=== PATIENT | male | born 2005 | race Caucasian/White ===

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

== ENCOUNTER 2023-08-21 13:11 | Observation (INO) | payer OTHER ==
--- OUTSIDE RECORDS SUMMARY | 2023-08-21 13:14 | XMS REPORT | Continuity of Care Document ---
Author Name Unknown Address [address] [facility] [address] th[address] Address [address] [facility] [address] [place] [address] Care Team Providers Care Construction Flagger Name Role Phone Apoorva Attending Clinician Unavailable Apoorva Admitting Clinician Unavailable Payers Payer Name Policy Type Policy Number Effective Date Expirati on Date Source [facility] [id number] Encounters Start Date/Time End Date/Time Encounter Type Admission Type Attending Clinicians Care Facility Care Department Encounter ID Source 2023-05-07 00:00:00 2023-05-07 00:00:00 Outpatient Kitty_Fabienne martinez [facility] [id number] [facility] 2023-04-26 14:05:38 2023-04-26 14:05:38 Outpatient JASON GOMEZ [id number] Allan Guadarrama
[2023-08-21] MEDS ORDERED: ONDANSETRON 4 MG/2 ML VIAL ONE (13:42)
[2023-08-21] MEDS ORDERED: PANTOPRAZOLE 40 MG INJ ONE ×2 (13:42→17:46)
[2023-08-21] MEDS ORDERED: FAMOTIDINE 20 MG/2 ML VIAL IV ONE (13:42)
[2023-08-21] MEDS ORDERED: NA CHLORIDE 0.9% 1,000 ML ONE ×2 (13:42→15:31)
[2023-08-21 13:47] LABS: Absolute Eosinophils 0.1 K/uL (0-0.5); Absolute Lymphocytes (CBC) 2.5 K/uL (0.7-4.9); Absolute Monocytes 0.5 K/uL (0.1-1.3); Absolute Neutrophil 6.2 K/uL (1.8-8.0); Basophils % 0.4 % (0-1.3); Eosinophils % 1.2 % (0-4.4); Hematocrit 42.7 % (39.6-49.0); Hemoglobin 14.3 g/dL (13.6-17.9); Lymphocytes % 26.4 % (15.3-44.8); MCH 29.7 pg (27.0-35.0); MCHC 33.4 g/dL (32.0-36.0); MCV 88.9 fL (80-100); MPV 8.3 fL (7.6-11.3); Monocytes % 5.8 % (3.3-12.3); Neutrophils % 66.2 % (41.7-73.7); Platelets 314 thou/uL (152-406); Red Cell Distribution Width 12.7 % (12.1-15.2)
[2023-08-21 14:07] LABS: Albumin 3.9 g/dL (3.4-5.0); Anion Gap 7.2 mEq/L (5.0-15.0); Bilirubin Total 0.5 mg/dL (0.2-1.0); Globulin 3.9 g/dL (2.3-3.5); Potassium 4.2 mEq/L (3.5-5.1); Protein, Total 7.8 g/dL (6.4-8.2)
--- NOTE | 2023-08-21 14:28 | RAD REPORT ---
EXAM DESCRIPTION: Satya Single View08/21/2023 1:44 pm CLINICAL HISTORY: COUGH COMPARISON: No comparisons TECHNIQUE: Portable AP view of the chest. FINDINGS: The lungs are clear. No pneumothorax or effusion. The cardiomediastinal contours are unre markable. IMPRESSION: No acute cardiopulmonary process.
[2023-08-21 14:45] LABS: Specific Gravity > 1.030 (1.005-1.030); Sqamous Epithelial <5 /HPF (None Seen); Urine Bacteria None Seen /HPF (<20); Urine Bilirubin NEGATIVE (Negative); Urine Blood Negative (Negative); Urine Clarity Clear (Clear); Urine Color Light-Yellow (Yellow); Urine Culture Reflex Order NOT NEEDED; Urine Glucose NEGATIVE (Negative); Urine Ketones NEGATIVE (Negative); Urine Microscopic Reflex YN ORDER UMIC; Urine Mucus Slight /HPF (None Seen); Urine Nitrite NEGATIVE (Negative); Urine Protein NEGATIVE (Negative); Urine RBC <5 /HPF (None Seen); Urine Urobilinogen Normal (Normal); Urine WBC <5 /HPF (<5); Urine pH 5.5 (5.0-7.0)
--- NOTE | 2023-08-21 14:52 | RAD REPORT ---
EXAM DESCRIPTION: CT - Abdomen Pelvis W Contrast - 08/21/2023 1:50 pm CLINICAL HISTORY: ABD PAIN COMPARISON: No comparisons TECHNIQUE: Thin cut axial CT imaging of the abdomen and pelvis was performed following intravenous a dministration of iodinated contrast. Multiplanar reformats were generated and reviewed. All CT scans are performed using dose optimization technique as appropriate and may include automated exposure control or mA/KV adjustment according to patient size. FINDINGS: No suspicious findings in the lung bases. The liver, spleen, adrenal glands, and pancreas show no suspicious findings. Gallbladder and biliary tree are also without suspicious finding. Symmetric renal function is seen with no hydronephrosis or suspicious renal mass. No dilated bowel loops or bowel wall thickening. Appendix is unremarkable. No free air, free fluid or inflammatory stranding. No hernia, mass or bulky lymphadenopathy. The urinary bladder is without sig nificant finding. No suspicious bony findings. IMPRESSION: No acute intra-abdominal process.
[2023-08-21] MEDS ORDERED: MAGNES/ALUMIN/SIMET 30ML UCUP ONE (15:30)
[2023-08-21] MEDS ORDERED: LIDOCAINE VISCOUS 2% 10ML ORAL SOLN ONE (15:30)
[2023-08-21 16:35] LABS: Hematocrit 38.4 % (39.6-49.0); Hemoglobin 13.2 g/dL (13.6-17.9)
--- NOTE | 2023-08-21 17:12 | ER ---
Nurse's Notes [facility] Name: Vinay Castro Age: 18 yrs Sex: Male : 2005 Arrival Date: 08/21/2023 Time: 13:11 Bed 6 Private MD: Diagnosis: Hematemesis Presentation: 08/20 13:23 Chief complaint: Patient states: Vomiting blood since March. Mostly just bright red ll1 blood now. Feels weak, fatigued, and dizzy lately. Coronavirus screen: Client denies travel out of the [place] in the last 14 days. At this time, the client does not indicate any symptoms associated with coronavirus-19. Ebola Screen: Patient denies travel to an Ebola-affected area in the 21 days before illness onset. Initial Sepsis Screen: Does the patient meet any 2 criteria? No. Patient's initial sepsis screen is negative. Does the patient have a suspected source of infection? No. Patient's initial sepsis screen is negative. Risk Assessment: Do you want to hurt yourself or someone else? Patient reports no desire to harm self or others. Onset of symptoms was March 12, 2023. 13:23 Method Of Arrival: Ambulatory ll1 13:23 Acuity: LUCA 2 ll1 Triage Assessment: 13:25 General: Appears uncomfortable, Behavior is calm, cooperative, appropriate for age. ll1 Pain: Complains of pain in abdomen Pain currently is 3 out of 10 on a pain scale. Quality of pain is described as aching, crampy. GI: Reports lower abdominal pain, upper abdominal pain, cramping, nausea, vomiting, vomiting blood. Historical: - Allergies: 13:23 No Known Allergies; ll1 - Home Meds: 13:23 None [Active]; ll1 - PMHx: 13:23 None; ll1 - PSHx: 13:23 None; ll1 - Immunization history:: Adult Immunizations up to date. - Infectious Disease History:: Denies. - Social history:: Smoking status: Reported history of juuling and/or vaping. Patient denies any tobacco usage or history of. Screenin:41 [facility] ED Fall Risk Assessment (Adult) History of falling in the last 3 months, ll1 including since admission No falls in past 3 months (0 pts) Confusion or Disorientation No (0 pts) Intoxicated or Sedated No (0 pts) Impaired Gait No (0 pts) Mobility Assist Device Used No (0 pt) Altered Elimination No (0 pt) Score/Fall Risk Level 0 - 2 = Low Risk. Abuse screen: Denies threats or abuse. Denies injuries from another. Nutritional screening: No deficits noted. Tuberculosis screening: No symptoms or risk factors identified. Assessment: 14:00 Reassessment: Patient appears in no apparent distress at this time. Patient and/or db family updated on plan of care and expected duration. Pain level reassessed. Patient is alert, oriented x 3, equal unlabored respirations, skin warm/dry/pink. General: Appears in no apparent distress. comfortable, Behavior is calm, cooperative. Neuro: Level of Consciousness is awake, alert, obeys commands, Oriented to person, place, time, situation. Respiratory: Airway is patent Respiratory effort is even, unlabored, Respiratory pattern is regular, symmetrical. GI: Abdomen is flat, Reports lower abdominal pain, nausea, vomiting. 15:00 Reassessment: Patient appears in no apparent distress at this time. Patient and/or db family updated on plan of care and expected duration. Pain level reassessed. Patient is alert, oriented x 3, equal unlabored respirations, skin warm/dry/pink. 16:00 Reassessment: Patient appears in no apparent distress at this time. Patient and/or db family updated on plan of care and expected duration. Pain level reassessed. Patient is alert, oriented x 3, equal unlabored respirations, skin warm/dry/pink. 17:00 Reassessment: Patient appears in no apparent distress at this time. Patient and/or db family updated on plan of care and expected duration. Pain level reassessed. Patient is alert, oriented x 3, equal unlabored respirations, skin warm/dry/pink. General: Appears in no apparent distress. comfortable, Behavior is calm, cooperative. 18:30 Reassessment: Patient appears in no apparent distress at this time. Patient and/or db family updated on plan of care and expected duration. Pain level reassessed. Patient is alert, oriented x 3, equal unlabored respirations, skin warm/dry/pink. 19:00 General: Appears in no apparent distress. comfortable, Behavior is calm, cooperative, jw7 appropriate for age. Pain: Denies pain. Neuro: Level of Consciousness is awake, alert, obeys commands, Oriented to person, place, time, situation, Appropriate for age. Cardiovascular: Capillary refill < 3 seconds Clubbing of nail beds is absent JVD is absent Patient's skin is warm and dry. 19:00 Respiratory: Airway is patent Trachea midline Respiratory effort is even, unlabored, jw7 Respiratory pattern is regular, symmetrical. GI: Abdomen is flat, non-distended, Bowel sounds present X 4 quads. Abd is soft and non tender X 4 quads. : No deficits noted. No signs and/or symptoms were reported regarding the genitourinary system. EENT: No deficits noted. No signs and/or symptoms were reported regarding the EENT system. Derm: Skin is intact, is healthy with good turgor, Skin is dry, Skin is normal, Skin temperature is warm. Musculoskeletal: Circulation, motion, and sensation intact. Range of motion: intact in all extremities. 20:00 Reassessment: Patient appears in no apparent distress at this time. No changes from jw7 previously documented assessment. Patient and/or family updated on plan of care and expected duration. Pain level reassessed. Patient is alert, oriented x 3, equal unlabored respirations, skin warm/dry/pink. 21:00 Reassessment: Patient appears in no apparent distress at this time. No changes from jw7 previously documented assessment. Patient and/or family updated on plan of care and expected duration. Pain level reassessed. Patient is alert, oriented x 3, equal unlabored respirations, skin warm/dry/pink. Vital Signs: 13:23 BP 137 / 90; Pulse 98; Resp 18; Temp 98.1; Pulse Ox 98% on R/A; Weight 108.86 kg; ll1 Height 5 ft. 10 in. ; Pain 3/10; 13:30 BP 129 / 74; Pulse 90; Resp 18; Pulse Ox 97% ; db 14:00 BP 124 / 59; Pulse 101; Resp 18; Pulse Ox 97% on R/A; db 16:56 BP 125 / 77; Pulse 76; Resp 16 S; Temp 98(O); Pulse Ox 99% on R/A; Pain 0/10; kc6 17:30 BP 119 / 67; Pulse 71; Resp 18; Pulse Ox 100% on R/A; db 18:00 BP 112 / 56; Pulse 70; Resp 18; Pulse Ox 99% on R/A; db 19:00 BP 120 / 72; Pulse 71; Resp 16 S; Pulse Ox 98% on R/A; jw7 20:00 BP 121 / 71; Pulse 72; Resp 15 S; Pulse Ox 99% on R/A; jw7 21:00 BP 122 / 76; Pulse 62; Resp 16 S; Pulse Ox 99% on R/A; jw7 13:23 Body Mass Index 34.44 (108.86 kg, 177.8 cm) ll1 13:23 Pain Scale: Adult ll1 16:56 Pain Scale: Adult kc6 ED Course: 13:15 Patient arrived in ED. im 13:21 Jaron Dsouza PA is PHCP. cp 13:21 Brandon Lott DO is Attending Physician. cp 13:23 Arm band placed on. ll1 13:25 Triage completed. ll1 13:39 Ana Maria Young, RN is Primary Nurse. db 13:41 Patient has correct armband on for positive identification. Bed in low position. Call ll1 light in reach. Side rails up X 1. Pulse ox on. NIBP on. 13:41 Inserted saline lock: 18 gauge in right antecubital area, using aseptic technique. ll1 Blood collected. 13:46 XRAY Chest (1 view) In Process Unspecified. EDMS 13:51 CT Abd/Pelvis - IV Contrast Only In Process Unspecified. EDMS 14:26 Urine collected: clean catch specimen. db 17:11 Chai Ramirez is Hospitalizing Provider. cp 18:30 Provided Education on: ADMIT. db 18:30 No provider procedures requiring assistance completed. Patient admitted, IV remains in db place. Administered Medications: 13:50 Drug: NS 0.9% IV 1000 ml IV at 1 bolus Per protocol; 1000 mL bolus Route: IV; Rate: 1 db bolus; Site: right antecubital; 15:35 Follow up: Response: No adverse reaction; IV Status: Completed infusion; IV Intake: db 1000ml 13:50 Drug: Famotidine IVP 20 mg IVP once; dilute with 10 mL 0.9% NaCl; give over 2 minutes db Route: IVP; Site: right antecubital; 15:52 Follow up: Response: No adverse reaction db 13:50 Drug: Ondansetron IVP 4 mg IVP once; over 2 minutes Route: IVP; Site: right antecubital;db 15:52 Follow up: Response: No adverse reaction db 13:50 Drug: Pantoprazole IVP 40 mg IVP once Route: IVP; Site: right antecubital; db 15:52 Follow up: Response: No adverse reaction db 15:35 Drug: NS 0.9% IV 1000 ml IV at 1 bolus Per protocol; 1000 mL bolus Route: IV; Rate: 1 db bolus; Site: right antecubital; 21:24 Follow up: Response: No adverse reaction; IV Status: Completed infusion; IV Intake: jw7 1000ml 15:35 Drug: GI Cocktail without - (Maalox PO 30 ml, Lidocaine Mucous Membrane 2 % 15 db ml) PO once Route: PO; 21:24 Follow up: Response: No adverse reaction; Marked relief of symptoms jw7 17:53 Drug: Pantoprazole IV 8 mg/hr IV at 25 ml/hr continuous; (Standard dilution is 80 mg in kc6 250 mL NS) Route: IV; Rate: 25 ml/hr; Site: right antecubital; 21:24 Follow up: Response: No adverse reaction; IV Status: Infusion continued upon admission; jw7 IV Intake: 75ml Medication: 14:00 VIS not applicable for this client. db Intake: 15:35 IV: 1000ml; Total: 1000ml. db 21:24 IV: 75ml; Total: 1075ml. jw7 21:24 IV: 1000ml; Total: 2075ml. jw7 Outcome: 17:11 Decision to Hospitalize by Provider. cp 18:30 Admitted to ER Hold. Please see [facility] for further documentation. db 18:30 Condition: stable 18:30 Instructed on the need for admit, 22:46 Patient left the ED. bm8 Signatures: Dispatcher [employer] EDMS Jaron Dsouza PA PA cp Lewis, Lynsay RN RN ll1 Yanely Wagner RN RN jw7 Johnna Jenkins RN RN kc6 Ana Maria Young RN RN db Maritza Brandt Brad RN RN bm8
--- NOTE | 2023-08-21 17:12 | EDPHYS ---
Physician Documentation [facility] Name: Vinay Castro Age: 18 yrs Sex: Male : 2005 Arrival Date: 08/21/2023 Time: 13:11 Bed 6 Private MD: ED Physician Brandon Lott HPI: 08/20 13:40 This 18 yrs old Male presents to ER via Ambulatory with complaints of Vomiting - blood. cp 13:40 The patient presents with abdominal pain in the epigastric area, in the upper abdomen. cp Onset: The symptoms/episode began/occurred 5 month(s) ago. The symptoms do not radiate. 13:40 Associated signs and symptoms: Pertinent positives: vomiting blood, reports vomiting cp about a cup of gross blood today. 13:40 Severity of pain: in the emergency department the pain is unchanged despite home cp interventions. Historical: - Allergies: 13:23 No Known Allergies; ll1 - Home Meds: 13:23 None [Active]; ll1 - PMHx: 13:23 None; ll1 - PSHx: 13:23 None; ll1 - Immunization history:: Adult Immunizations up to date. - Infectious Disease History:: Denies. - Social history:: Smoking status: Reported history of juuling and/or vaping. Patient denies any tobacco usage or history of. ROS: 13:45 Constitutional: Positive for weight loss, Negative for body aches, chills, fever, poor cp PO intake, 13:45 Abdomen/GI: Positive for abdominal pain, nausea and vomiting, hematemesis, Negative for cp diarrhea, constipation, 13:45 Eyes: Negative for injury, pain, redness, and discharge, cp 13:45 ENT: Negative for drainage from ear(s), ear pain, sore throat, difficulty swallowing, difficulty handling secretions, 13:45 Cardiovascular: Negative for chest pain, edema, palpitations, 13:45 Respiratory: Negative for cough, shortness of breath, wheezing, 13:45 Neuro: Negative for altered mental status, syncope, near syncope, 13:45 All other systems are negative, Exam: 13:50 Constitutional: The patient appears in no acute distress, alert, awake, non-toxic, well cp developed, well nourished, 13:50 Head/Face: Normocephalic, atraumatic. cp 13:50 Eyes: Periorbital structures: appear normal, Conjunctiva: normal, no exudate, no injection, Sclera: no appreciated abnormality, Lids and lashes: appear normal, bilaterally, 13:50 ENT: External ear(s): are unremarkable, Nose: is normal, Mouth: Lips: moist, Oral mucosa: pink and intact, moist, Posterior pharynx: is normal, airway is patent, no erythema, no exudate, 13:50 Chest/axilla: Inspection: normal, 13:50 Cardiovascular: Rate: normal, Rhythm: regular, Edema: is not appreciated, JVD: is not appreciated, 13:50 Respiratory: the patient does not display signs of respiratory distress, Respirations: normal, no use of accessory muscles, no retractions, labored breathing, is not present, Breath sounds: are clear throughout, no decreased breath sounds, no stridor, no wheezing, 13:50 Abdomen/GI: Inspection: abdomen appears normal, Bowel sounds: active, all quadrants, Palpation: soft, in all quadrants, mild abdominal tenderness, in the epigastric area, 13:50 Back: pain, is absent, ROM is normal, 13:50 Neuro: Orientation: to person, place \T\ time. Mentation: is normal, Vital Signs: 13:23 BP 137 / 90; Pulse 98; Resp 18; Temp 98.1; Pulse Ox 98% on R/A; Weight 108.86 kg; ll1 Height 5 ft. 10 in. ; Pain 3/10; 13:30 BP 129 / 74; Pulse 90; Resp 18; Pulse Ox 97% ; db 14:00 BP 124 / 59; Pulse 101; Resp 18; Pulse Ox 97% on R/A; db 16:56 BP 125 / 77; Pulse 76; Resp 16 S; Temp 98(O); Pulse Ox 99% on R/A; Pain 0/10; kc6 17:30 BP 119 / 67; Pulse 71; Resp 18; Pulse Ox 100% on R/A; db 18:00 BP 112 / 56; Pulse 70; Resp 18; Pulse Ox 99% on R/A; db 19:00 BP 120 / 72; Pulse 71; Resp 16 S; Pulse Ox 98% on R/A; jw7 20:00 BP 121 / 71; Pulse 72; Resp 15 S; Pulse Ox 99% on R/A; jw7 21:00 BP 122 / 76; Pulse 62; Resp 16 S; Pulse Ox 99% on R/A; jw7 13:23 Body Mass Index 34.44 (108.86 kg, 177.8 cm) ll1 13:23 Pain Scale: Adult ll1 16:56 Pain Scale: Adult kc6 MDM: 13:21 Patient medically screened. 17:00 Data reviewed: vital signs, nurses notes, lab test result(s), radiologic studies, CT cp scan, plain films. 17:15 Management of patient was discussed with the following: Hospitalist: DR Daniel pratt cp admit after discussion. I considered the following discharge prescriptions or medication management in the emergency department Medications were administered in the Emergency Department. See MAY. 17:15 Differential diagnosis: gastritis, gastroesophageal reflux disease, GI Bleed, Peptic cp Ulcer Disease, Perf. Duodenal Ulcer, Perf. Gastric Ulcer. Counseling: I had a detailed discussion with the patient and/or guardian regarding the historical points, exam findings, and any diagnostic results supporting the discharge/admit diagnosis, lab results, radiology results. 08/20 13:30 Order name: CBC with Diff; Complete Time: 14:23 08/20 14:23 Interpretation: Reviewed. 08/20 13:30 Order name: CMP; Complete Time: 14:23 08/20 14:23 Interpretation: Normal except: ALT 69; GLOB 3.9; A/G 1.0. 08/20 13:30 Order name: Lipase; Complete Time: 14:23 08/20 14:23 Interpretation: Reviewed. 08/20 13:30 Order name: Urinalysis w/ reflexes; Complete Time: 15:09 08/20 15:10 Interpretation: Reviewed. 08/20 15:54 Order name: Hemoglobin; Complete Time: 16:41 08/20 15:54 Order name: Hematocrit; Complete Time: 16:41 08/20 18:09 Order name: Hematocrit [facility] 08/20 18:09 Order name: Hemoglobin [facility] 08/20 18:09 Order name: Basic Metabolic Panel [facility] 08/20 18:09 Order name: Basic Metabolic Panel [facility] 08/20 18:09 Order name: Basic Metabolic Panel [facility] 08/20 18:09 Order name: Basic Metabolic Panel [facility] 08/20 18:09 Order name: Basic Metabolic Panel [facility] 08/20 18:09 Order name: Basic Metabolic Panel [facility] 08/20 18:09 Order name: CBC with Automated Diff [facility] 08/20 18:09 Order name: CBC with Automated Diff [facility] 08/20 18:09 Order name: CBC with Automated Diff [facility] 08/20 18:09 Order name: CBC with Automated Diff [facility] 08/20 18:09 Order name: CBC with Automated Diff EDMS 08/20 18:09 Order name: CBC with Automated Diff [facility] 08/20 18:09 Order name: Magnesium EDMS 08/20 18:09 Order name: Magnesium EDMS 08/20 18:10 Order name: Magnesium EDMS 08/20 18:10 Order name: Magnesium EDMS 08/20 18:10 Order name: Magnesium EDMS 08/20 18:10 Order name: Magnesium EDMS 08/20 18:10 Order name: Phosphorus EDMS 08/20 18:10 Order name: Phosphorus EDMS 08/20 18:10 Order name: Phosphorus EDMS 08/20 18:10 Order name: Phosphorus EDMS 08/20 18:10 Order name: Phosphorus EDMS 08/20 18:10 Order name: Phosphorus EDMS 08/20 18:12 Order name: Urine Drug Screen [facility] 08/20 13:30 Order name: CT Abd/Pelvis - IV Contrast Only; Complete Time: 15:09 cp 08/20 15:10 Interpretation: Report reviewed. 08/20 13:30 Order name: XRAY Chest (1 view); Complete Time: 15:09 cp 08/20 15:09 Interpretation: Report review. 08/20 18:09 Order name: CONS Physician Consult [facility] 08/20 13:30 Order name: IV Saline Lock; Complete Time: 13:40 cp 08/20 13:30 Order name: Labs collected and sent; Complete Time: 13:40 cp Administered Medications: 13:50 Drug: NS 0.9% IV 1000 ml IV at 1 bolus Per protocol; 1000 mL bolus Route: IV; Rate: 1 db bolus; Site: right antecubital; 15:35 Follow up: Response: No adverse reaction; IV Status: Completed infusion; IV Intake: db 1000ml 13:50 Drug: Famotidine IVP 20 mg IVP once; dilute with 10 mL 0.9% NaCl; give over 2 minutes db Route: IVP; Site: right antecubital; 15:52 Follow up: Response: No adverse reaction db 13:50 Drug: Ondansetron IVP 4 mg IVP once; over 2 minutes Route: IVP; Site: right antecubital;db 15:52 Follow up: Response: No adverse reaction db 13:50 Drug: Pantoprazole IVP 40 mg IVP once Route: IVP; Site: right antecubital; db 15:52 Follow up: Response: No adverse reaction db 15:35 Drug: NS 0.9% IV 1000 ml IV at 1 bolus Per protocol; 1000 mL bolus Route: IV; Rate: 1 db bolus; Site: right antecubital; 21:24 Follow up: Response: No adverse reaction; IV Status: Completed infusion; IV Intake: jw7 1000ml 15:35 Drug: GI Cocktail without - (Maalox PO 30 ml, Lidocaine Mucous Membrane 2 % 15 db ml) PO once Route: PO; 21:24 Follow up: Response: No adverse reaction; Marked relief of symptoms jw7 17:53 Drug: Pantoprazole IV 8 mg/hr IV at 25 ml/hr continuous; (Standard dilution is 80 mg in kc6 250 mL NS) Route: IV; Rate: 25 ml/hr; Site: right antecubital; 21:24 Follow up: Response: No adverse reaction; IV Status: Infusion continued upon admission; jw7 IV Intake: 75ml Disposition: 14:22 I was immediately available on-site in the Emergency Department for consultation in the ms3 care of the patient. Disposition Summary: 08/21/23 17:11 Hospitalization Ordered Notes: Hospitalization Status: Observation cp Provider: Chai Ramirez cp [facility] cp Condition: Stable cp Problem: new cp Symptoms: have improved cp Bed/Room Type: Standard cp Room Assignment: 212(08/21/23 21:39) Diagnosis - Hematemesis cp Forms: - Medication Reconciliation Form cp - SBAR form cp - Leadership Thank You Letter cp Signatures: Dispatcher [employer] Jaron Niño PA PA cp Garcia, Cindy, RN RN Vonnie Coreas RN RN ll1 Brandon Lott DO DO ms3 Johnna Jenkins RN RN kc6 Ana Maria Young RN RN db Yanely Wagner RN jw7 Corrections: (The following items were deleted from the chart) 13:31 13:31 CBC+H.LAB.BRZ ordered. EDMS EDMS 13:31 13:31 COMPREHENSIVE METABOLIC PANEL+C.LAB.BRZ ordered. EDMS EDMS 13:31 13:31 LIPASE+C.LAB.BRZ ordered. EDMS EDMS 13:31 13:31 Urinalysis+U.LAB.BRZ ordered. EDMS EDMS 13:31 13:31 Abdomen Pelvis W Con+CT.RAD.BRZ ordered. EDMS EDMS 13:31 13:31 Chest Single View+RAD.RAD.BRZ ordered. EDMS EDMS 13:43 13:41 This 18 yrs old Male presents to ER via Ambulatory with complaints of Vomiting - cp blood. cp 21:39 17:11 cp cg
[2023-08-21] MEDS ORDERED: NA CHLORIDE 0.9% 250 ML ONE (17:46)
--- NOTE | 2023-08-21 18:21 | P.HP ---
Certification for Inpatient Patient admitted to: Observation With expected LOS: <2 Midnights Patient will require the following post-hospital care: None Practitioner: I am a practitioner with admitting privileges, knowledge of patient current condition, hospital course, and medical plan of care. Services: Services provided to patient in accordance with Admission requirements found in Title 42 Section 412.3 of the Code of Federal Regulations Patient History Date of Service: 08/21/23 Reason for admission: GI bleed History of Present Illness: Vinay Castro is a 18 year old male with reported "unknown digestive issues" as an who presented to the ED with chief complaint of vomiting blood. He reports having nausea/vomiting since before March which has worsened now to vomiting blood more often. He states he vomited, what looked like, a cup of blood today which is why he came to the ED. He reports having heart burn but now feeling like the burn is behind his esophagus and under his lungs bilaterally. While in the ED, H/H 14.3/42.7 with repeat of 13.2/38.4. CT abd/pelvis reports "no acute intra-abdominal process." Laboratory evaluation H/H 13.2/38.4, otherwise unremarkable. UA negative for infectious process. Urine drug screen pending. Chest xray reports "The lungs are clear. No pneumothorax or effusion. The cardiomediastinal contours are unremarkable. IMPRESSION: No acute cardiopulmonary process." Initial vitals BP 137 / 90; Pulse 98; Resp 18; Temp 98.1; Pulse Ox 98% on R/A Vinay will be admitted to hospitalist service for further evaluation and treatment, Dr. Alberto consulted. Allergies No Known Allergies Allergy (Unverified 08/21/23 17:43) - Past Medical/Surgical History Past Medical History: Patient denies medical history Past Surgical History: Patient denies surgical history - Social History Smoking Status: Current every day smoker (vape) Alcohol use: No CD- Drugs: No Caffeine use: Yes Review of Systems Gastrointestinal: Nausea, Vomiting, Abdominal Pain, Diarrhea Physical Examination - Physical Exam General: Alert, In no apparent distress, Oriented x3 HEENT: Atraumatic, Normocephalic Neck: Supple, 2+ carotid pulse no bruit Respiratory: Clear to auscultation bilaterally, Normal air movement Cardiovascular: No edema, Normal pulses, Regular rate/rhythm, Normal S1 S2 Capillary refill: <2 Seconds Gastrointestinal: Normal bowel sounds, Soft and benign Musculoskeletal: No swelling Integumentary: No rashes Neurological: Normal speech, Normal tone - Studies Laboratory Data (last 24 hrs) 08/21/23 08/21/23 08/21/23 16:12 13:37 13:37 WBC 9.40 Hgb 13.2 L 14.3 Hct 38.4 L 42.7 Plt Count 314 Sodium 137 Potassium 4.2 BUN 9 Creatinine 1.11 Glucose 86 Total Bilirubin 0.5 AST 25 ALT 69 H Alkaline Phosphatase 88 Lipase 12 L Assessment and Plan - Plan Assessment and Plan GI bleed Intractable Nausea/vomiting -CT abd/pelvis reports "FINDINGS: No suspicious findings in the lung bases.The liver, spleen, adrenal glands, and pancreas show no suspicious findings. Gallbladder and biliary tree are also without suspicious finding. Symmetric renal function is seen with no hydronephrosis or suspicious renal mass. No dilated bowel loops or bowel wall thickening. Appendix is unremarkable. No free air, free fluid or inflammatory stranding. No hernia, mass or bulky lymphadenopathy. The urinary bladder is without significant finding.No suspicious bony findings.IMPRESSION: No acute intra-abdominal process." -Consult Dr. Alberto -IVF -Carafate -Protoinix gtt -NPO DVT ppx SCD full code Observation Discharge Plan: Home Plan to discharge in: 24 Hours - Advance Directives Does patient have a Living Will: No Does patient have a Durable POA for Healthcare: No
[2023-08-21] MEDS: PANTOPRAZOLE INJ 80 MG in NA CHLORIDE 0.9% 250 ML IV SCH (19:00)
[2023-08-21 19:27] LABS: Barbiturates NEGATIVE (NEGATIVE); Benzodiazepines NEGATIVE (NEGATIVE); Cocaine NEGATIVE (NEGATIVE); METHAMPHETAM NEGATIVE (NEGATIVE); Methadone NEGATIVE (NEGATIVE); Opiates NEGATIVE (NEGATIVE); Phencyclidine NEGATIVE (NEGATIVE); THC Cannibis NEGATIVE (NEGATIVE)
[2023-08-21 21:26] LABS: Hematocrit 40.9 % (39.6-49.0); Hemoglobin 13.8 g/dL (13.6-17.9)
[2023-08-21] MEDS: SUCRALFATE 1GM/10ML UCUP FT SCH (22:51)
[2023-08-21] MEDS: NA CHLORIDE 0.9% 1,000 ML IV SCH (22:51)
[2023-08-21 22:57] VITALS: BMI 31.1
[2023-08-22 06:44] LABS: Absolute Eosinophils 0.1 K/uL (0-0.5); Absolute Lymphocytes (CBC) 2.6 K/uL (0.7-4.9); Absolute Monocytes 0.6 K/uL (0.1-1.3); Absolute Neutrophil 4.5 K/uL (1.8-8.0); Basophils % 0.4 % (0-1.3); Eosinophils % 1.3 % (0-4.4); Hematocrit 39.6 % (39.6-49.0); Hemoglobin 13.5 g/dL (13.6-17.9); Lymphocytes % 33.6 % (15.3-44.8); MCH 30.4 pg (27.0-35.0); MCHC 34.1 g/dL (32.0-36.0); MCV 89.1 fL (80-100); MPV 8.8 fL (7.6-11.3); Monocytes % 7.2 % (3.3-12.3); Neutrophils % 57.5 % (41.7-73.7); Platelets 244 thou/uL (152-406); RBC Red Blood Cell Count 4.45 M/uL (4.33-5.43); Red Cell Distribution Width 12.6 % (12.1-15.2)
[2023-08-22 07:23] LABS: Potassium 3.9 mEq/L (3.5-5.1)
[2023-08-22 07:24] LABS: Anion Gap 5.9 mEq/L (5.0-15.0); Phosphorus 3.5 mg/dL (2.5-4.9)
[2023-08-22 11:59] LABS: Hematocrit 40.8 % (39.6-49.0)
[2023-08-22 13:03] VITALS: O2SAT 97
--- NOTE | 2023-08-22 13:06 | P.DS ---
Admission Date: 08/21/23 Discharge Date: 08/22/23 Disposition: ROUTINE DISCHARGE Discharge Condition: GOOD Reason for Admission: GI bleed Brief History of Present Illness: Diagnosis GI bleed Intractable Nausea/vomiting HPI 08/21/2023 Vinay Castro is a 18 year old male with reported "unknown digestive issues" as an who presented to the ED with chief complaint of vomiting blood. He reports having nausea/vomiting since before March which has worsened now to vomiting blood more often. He states he vomited, what looked like, a cup of blood today which is why he came to the ED. He reports having heart burn but now feeling like the burn is behind his esophagus and under his lungs bilaterally. While in the ED, H/H 14.3/42.7 with repeat of 13.2/38.4. CT abd/pelvis reports "no acute intra-abdominal process." Laboratory evaluation H/H 13.2/38.4, otherwise unremarkable. UA negative for infectious process. Urine drug screen pending. Chest xray reports "The lungs are clear. No pneumothorax or effusion. The cardiomediastinal contours are unremarkable. IMPRESSION: No acute cardiopulmonary process." Initial vitals BP 137 / 90; Pulse 98; Resp 18; Temp 98.1; Pulse Ox 98% on R/A Vinay will be admitted to hospitalist service for further evaluation and treatment, Dr. Alberto consulted. Hospital Course: Vinay Castro is a pleasant 18-year-old male with a no significant past medical history who was admitted to the [facility] on 08/21/2023 for vomiting blood. Vinay Castro presented to the ED with chief complaint of vomiting blood. He has been monitored during this admission and found to have stable labs as well as vital signs. No vomiting episodes this visit. Dr. Alberto consulted and has cleared him for discharge and to follow-up for outpatient management. Please continue to advance your diet slowly with clear liquid before eating a full meal. He is ambulating independently, urinating without difficulty, reports no blood in his urine or bowel movements, and hemodynamically stable for discharge. On 08/22/2023, Vinay was seen on morning rounds and deemed medically stable for discharge. Vinay was discharged with instructions to schedule follow-up appointments with Dr. Alberto and PCP. Vinay was provided prescriptions for Carafate and Protonix. The patient and family members were given the opportunity to ask questions and reported no further questions. Furthermore, all questions were answered to the best of my ability. A copy of this discharge summary will be sent to the above providers to facilitate continuity of care. Physical Exam General: Alert and oriented x 3, NAD, comfortable HEENT: Atraumatic, Normocephalic Neck: Supple, 2+ carotid pulse no bruit Respiratory: Clear to auscultation bilaterally, Normal air movement Cardiovascular: No edema, Normal pulses, RRR, Normal S1 S2 Capillary refill: <2 Seconds Gastrointestinal: Normal active bowel sounds, Soft and benign on palpation Musculoskeletal: No swelling Integumentary: No rashes Neurological: Normal speech, Normal tone Vital Signs/Physical Exam: Temp Pulse Resp BP Pulse Ox 97.8 F 76 21 H 112/54 L 97 08/22/23 08:00 08/22/23 08:00 08/22/23 08:00 08/22/23 08:00 08/22/23 08:00 Laboratory Data at Discharge: WBC 7.80 thou/uL (4.3-10.9) 08/22/23 06:11 Hgb 14.0 g/dL (13.6-17.9) 08/22/23 11:53 Hct 40.8 % (39.6-49.0) 08/22/23 11:53 Plt Count 244 thou/uL (152-406) 08/22/23 06:11 Sodium 138 mEq/L (136-145) 08/22/23 06:11 Potassium 3.9 mEq/L (3.5-5.1) 08/22/23 06:11 BUN 10 mg/dL (7-18) 08/22/23 06:11 Creatinine 1.02 mg/dL (0.70-1.30) 08/22/23 06:11 Glucose 82 mg/dL (74-106) 08/22/23 06:11 Phosphorus 3.5 mg/dL (2.5-4.9) 08/22/23 06:11 Magnesium 2.0 08/22/23 06:11 Total Bilirubin 0.5 mg/dL (0.2-1.0) 08/21/23 13:37 AST 25 U/L (15-37) 08/21/23 13:37 ALT 69 U/L (16-61) H 08/21/23 13:37 Alkaline Phosphatase 88 U/L (45-117) 08/21/23 13:37 Lipase 12 U/L (13-75) L 08/21/23 13:37 Home Medications: Pantoprazole Sodium [Protonix] 40 mg PO DAILY 30 Days #30 tab 08/22/23 Sucralfate [Carafate] 1 gm PO TID 10 Days #30 tab 08/22/23 New Medications: Sucralfate [Carafate] 1 gm PO TID 10 Days #30 tab Pantoprazole Sodium [Protonix] 40 mg PO DAILY 30 Days #30 tab Physician Discharge Instructions: Vinay Castro presented to the ED with chief complaint of vomiting blood. He has been monitored during this admission and found to have stable labs as well as vital signs. No episodes this visit. Please continue to advance your diet slowly with clear liquid before eating a full meal. 1. Please call and schedule a follow-up appointment with your PCP in 3-5 days - Please follow-up with your PCP for medication refills/adjustments 2. Please call and schedule a follow-up appointment with Dr. Alberto in one week -Outpatient follow up for possible EGD 3. Advance diet slowly with clear liquid soup or juice allowing your digestive system to respond, and see if you are able to tolerate it. 4. No activity restrictions 5. Return to the ED if symptoms worsen New medications Carafate Three times daily for 10 days protonix 40 mg Daily for 30 days Diet: Regular Activity: Ad jeaneth Followup: NONE,NONE [Primary Care Provider] - Fede Alberto MD [ACTIVE - CAN ADMIT] - 1 Week
[2023-08-22 13:41] VITALS: BP 118/60; TEMP 97.4
[2023-08-22] MEDS ORDERED: PANTOPRAZOLE INJ 80 MG in NA CHLORIDE 0.9% 250 ML IV SCH (15:00)
== END 2023-08-22 13:44 | disposition home or self-care (01) ==
LOC: ER 13:11 → ERHOLD 17:59 → 2ND 22:33
PROVIDERS: ADMIT Internal Medicine; ATTEND Internal Medicine
DX: K92.0 Hematemesis (principal); R11.2 Nausea with vomiting, unspecified; F17.290 Nicotine dependence, other tobacco product, uncomplicated
CPT/HCPCS: 96365; 96361; 85025 ×2; 81001; 80048; 36415; 83735; 84100; 85018 ×3; 85014 ×3; 83690; 80053; 80307; 74177; 71045; 96375; 99285; 96366; Q9967; C9113 ×3; J2405; J7050 ×2; J7030 ×4; G0378 ×4

== ENCOUNTER 2024-07-11 07:00 | Day surgery (SDC) | payer OTHER ==
[2024-07-08 10:09] LABS: Anion Gap 8.1 mEq/L (5.0-15.0); Potassium 4.1 mEq/L (3.5-5.1)
--- NOTE | 2024-07-08 11:44 | EKG ---
Test Date: 2024-07-08 Test Time: 09:41:13 Mill Set Up: ADRIÁN MEASUREMENT RESULTS: Intervals: Rate: 63 NV: 142 QRSD: 108 QT: 394 QTc: 403 [place]: P: 16 NV: 142 QRS: 83 T: 38 INTERPRETIVE STATEMENTS: Normal sinus rhythm with sinus arrhythmia Normal ECG No previous ECG available for comparison Electronically Signed On 07-08-24 11:43:35 CDT by Torin Kirby
[2024-07-11] MEDS ORDERED: EPHEDRINE SULF 50 MG/ML VIAL ONE (07:14)
[2024-07-11] MEDS ORDERED: propofoL 200 MG/20 ML VIAL IV ONE ×2 (07:14→08:18)
[2024-07-11] MEDS ORDERED: LIDOCAINE 1% MPF 30 ML VIAL ONE ×2 (07:14)
[2024-07-11] MEDS: Ringers Lactate 1,000 ML IV ONE (07:25)
[2024-07-11 09:57] VITALS: O2SAT 100
[2024-07-11 10:37] VITALS: BP 112/61; TEMP 97.2
== END 2024-07-11 10:02 | disposition home or self-care (01) ==
LOC: OR 07:00
PROVIDERS: ATTEND Surgery
PROC: 0DBB8ZX Excision of Ileum, Via Natural or Artificial Opening Endoscopic, Diagnostic (ICD-10-PCS; 2024-07-11)
PROC: 0DBH8ZX Excision of Cecum, Via Natural or Artificial Opening Endoscopic, Diagnostic (ICD-10-PCS; 2024-07-11)
PROC: 0DB98ZX Excision of Duodenum, Via Natural or Artificial Opening Endoscopic, Diagnostic (ICD-10-PCS; 2024-07-11)
PROC: 0DB68ZX Excision of Stomach, Via Natural or Artificial Opening Endoscopic, Diagnostic (ICD-10-PCS; 2024-07-11)
PROC: 0DB38ZX Excision of Lower Esophagus, Via Natural or Artificial Opening Endoscopic, Diagnostic (ICD-10-PCS; 2024-07-11)
PROC: 0DBQ8ZX Excision of Anus, Via Natural or Artificial Opening Endoscopic, Diagnostic (ICD-10-PCS; principal; 2024-07-11 08:00)
PROC: 0DBP8ZX Excision of Rectum, Via Natural or Artificial Opening Endoscopic, Diagnostic (ICD-10-PCS; 2024-07-11 08:00)
DX: K92.1 Melena (principal); R10.11 Right upper quadrant pain; K29.50 Unspecified chronic gastritis without bleeding; K21.00 Gastro-esophageal reflux disease with esophagitis, without bleeding; K64.8 Other hemorrhoids; K92.0 Hematemesis; K44.9 Diaphragmatic hernia without obstruction or gangrene; K29.60 Other gastritis without bleeding; K29.51 Unspecified chronic gastritis with bleeding
CPT/HCPCS: 45380; 93005; 80048; 36415; 88312; 88305; 43239; J2704 ×2; J2003; J7120